=== PATIENT | male | born 1990 | race Caucasian/White ===

== ENCOUNTER 2016-11-19 12:24 | Emergency (ER) | payer OTHER ==
[~2016-11-19] VITALS: Ht 167.6 cm; Wt 88.1 kg
[2016-11-19 12:29] VITALS: TEMP 36.9; Ht 167.6 cm; Wt 88.1 kg
[2016-11-19] MEDS ORDERED: [UNRECOGNIZED DRUG - OTHER] PO (12:37)
--- NOTE | 2016-11-19 13:01 | DIAGNOSTIC IMAGING REPORT ---
RIGHT KNEE 3 VIEWS CLINICAL HISTORY: RIGHT KNEE PAIN, POSSIBLE FLUID Right COMPARISON: None. DISCUSSION: The bones and joint spaces appear intact. There is no evidence of fracture, dislocation or bony disease. There is no evidence for soft tissue swelling. IMPRESSION: Negative study. Electronically signed by: Gage Bull M.D. 11/19/2016 1:00 PM Dictated Date/Time: 11/19/2016 12:59 PM
[2016-11-19] MEDS ORDERED: TRAM-10 PO (13:22)
[2016-11-19 13:29] VITALS: BP 133/75; PULSE 85; O2SAT 98
--- NOTE | 2016-11-20 20:19 | EMERGENCY ROOM VISIT NOTE ---
ED Visit Note First contact with patient: 12:47 Chief Complaint: Right knee pain. History of Present Illness: Mr. Wen is a 26-year-old white male who ambulates into the ED complaining right knee pain and swelling. Historically patient reports he's had previous episodes of swelling of the left knee that has required and arthrocentesis. Reviewing his medical records he has been seen here for right knee pain and swelling. 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 Patient reports she started developing pain for days ago. Initially was mild and has gradually increased in intensity. The rear aspect of the right knee. He describes his pain as a deep achy sensation as well as sharp. He rates his discomfort 7/10. Flexion beyond 30 and palpation increases his discomfort. He has not identified any alleviating factors related to the pain. He reports she's been Hours without relief of his discomfort. Associated with his pain he has noted swelling over the superior aspect of the knee. He denies any recent direct or repetitive trauma, hip pain, thigh pain, lower leg pain, ankle pain, leg weakness/numbness/tingling, fevers, chills, sweats, skin redness, red streaking, fevers, previous significant injuries or surgeries. Review of Systems: As noted above in History of Present Illness. Past Medical History: As noted above. Current Medications: Amoxicillin. Allergies to Medications: Patient denies. Social History: Patient is currently employed; he feels safe in his home environment; he admits to tobacco and alcohol use. Physical Examination: Vital Signs: Date Time Temp Pulse Resp B/P Pulse Ox O2 Delivery O2 Flow Rate FiO2 11/19/16 13:29 85 16 133/75 98 11/19/16 12:29 36.9 91 17 152/89 97 Room Air GENERAL: 26-year-old male in mild distress due to pain, nontoxic-appearing, afebrile and hemodynamically stable. NEUROLOGICAL: Awake, alert and oriented to person, place and time. Answering questions appropriately and following commands. Good hand eye coordination. No focal motor sensory deficits. SKIN: Warm, dry and pink. No soft tissue eruptions or trauma noted. RIGHT LOWER EXTREMITY: No gross bony deformities. No shortening or malrotation. No tenderness over the hip, thigh, lower leg, ankle or foot. Moderate tenderness over the anterior and superior aspects of the knee with mild swelling but no skin erythema or warmth. Negative ballottement test. Negative patellar apprehension test. No laxity of the collateral or cruciate ligaments. No tenderness over the lateral medial joint line. Difficulty performing Paradise's or modified Paradise's test due to pain and swelling. 5/ 5 muscle strength in plantar flexion and dorsiflexion of the ankle and flexion and extension of all toes. No calf tenderness or cords. Distal neurovascular statuses are intact. ED Course: Patient is assessed as noted above. Patient was given ice and 50 mg of Ultram by mouth for pain. Right Knee X-Rays: Were read by myself and the radiologist showing no acute fractures or dislocations. No evidence of bony disease or soft tissue swelling. Patient was placed in a knee immobilizer and on nonweightbearing crutches. Patient was educated about tonight's findings and instructed on his treatment plan; he verbalizes understanding and agreement with this plan. Clinical Impression: Right knee effusion. Decision-Making: Initially my differential diagnosis I considered fracture, dislocation, ligamentous strain, bursitis and other causes. Disposition: Patient discharged home in stable condition accompanied by female friends; prior to departure he was reassessed and subjectively reported he was feeling better and rated his discomfort 6/10. Plan: Comfort measures were discussed with the patient including rest, ice, elevation , splint and crutch use and alternating Ultram and acetaminophen every 3 hours as needed for pain. Patient was encouraged to follow-up with orthopedics if no better in 3-6 days. Patient was encouraged return ED for worsening/uncontrolled pain, uncontrolled swelling, skin redness, red streaking, fevers or any new/concerning symptoms
== END 2016-11-19 13:31 | disposition home or self-care (01) ==
LOC: C.EDB 12:26 → C.EDD 13:31
DX: M25.461 Effusion, right knee (principal); Z72.0 Tobacco use

== ENCOUNTER 2017-02-03 09:45 | Emergency (ER) | payer OTHER ==
[~2017-02-03] VITALS: Ht 167.6 cm; Wt 83.5 kg
[~2017-02-03 09:45] MED LIST: TRAM-10 PO; [UNRECOGNIZED DRUG - OTHER] PO
[2017-02-03 09:46] VITALS: TEMP 36.9; Ht 167.6 cm; Wt 83.5 kg
--- NOTE | 2017-02-03 10:21 | DIAGNOSTIC IMAGING REPORT ---
RIGHT WRIST 5 VIEWS HISTORY: R wrist pain Right COMPARISON: None. FINDINGS: There is no fracture or dislocation. Mild soft tissue swelling. No radiopaque foreign bodies. IMPRESSION: No fractures. Electronically signed by: Donovan Blanchard M.D. 02/03/2017 10:20 AM Dictated Date/Time: 02/03/2017 10:18 AM
[2017-02-03 10:42] VITALS: BP 153/98; PULSE 94; O2SAT 96
--- NOTE | 2017-02-03 17:04 | EMERGENCY ROOM VISIT NOTE ---
ED Visit Note First contact with patient: 09:52 CHIEF COMPLAINT: Right wrist injury History of present illness: This 26-year-old white male patient complains of moderate constant right wrist pain today after a fall. He was carrying firewood and tripped, landing on his right wrist. The pain is worse with any movement of the wrist. No laceration, no numbness or weakness. No other injury. The fall was not associated with dizziness or fainting. There were no palpitations, no chest pain, no difficulty breathing, no headache, no lightheadedness or weakness. Pain is 5/10. His girlfriend accompanies him today. REVIEW OF SYSTEMS: GENERAL: No fever or chills, easy fatigue, loss of appetite, or significant weight change. NEUROLOGICAL: No headache, change in mental status, weakness, numbness, or dizziness. PMH: Supplemental sheet was reviewed and signed. Previous surgeries: None Medical history: Benign Current medications: None Allergies: NKDA SOCIAL HISTORY: Patient lives at home with girlfriend and kids. Positive tobacco use, positive EtOH use. He finishes concrete. Family history: Unremarkable. Parents are living. PHYSICAL EXAM: Vital Signs: Afebrile. Reviewed and filed in patient's chart. General: Well-developed, well-nourished, young white male, in no acute distress. Obvious discomfort. He is sitting on a bed. MENTAL STATUS: Alert and oriented. Skin: Warm and dry with good turgor. No rashes or lesions. No ecchymosis or erythema. The patient is not diaphoretic. No abrasions. Musculoskeletal: There is tenderness over the distal radius and distal ulna with mild swelling on the ulnar border. Range of motion is limited for flexion , extension and ulnar deviation secondary to pain. No obvious deformity. No pain with palpation over the metacarpal heads or digits. There is intact motion of the digits, including opposition and circumduction of the thumb. No significant discomfort at the anatomic snuffbox. Elbow exam is benign. Neurologic: The hand is warm and well perfused and the fingers have normal sensation. Median, radial, and ulnar nerve functions are clearly intact. EMERGENCY DEPARTMENT COURSE: Radiographic images obtained today of the wrist did not show any fracture. A Velcro wrist splint was placed under my direction to insure proper positioning. DIAGNOSIS: Right wrist contusion DISCHARGE INSTRUCTIONS & TREATMENT: The patient was educated regarding today's findings. Conservative care measures were discussed. Velcro wrist splint was applied to the patient. Wear the wrist splint for 4 - 5 days until the pain subsides. Ice and elevate the wrist intermittently to reduce pain and swelling. Ibuprofen, 600mg and Tylenol 1 g every 6 hours if needed for the pain. Gentle motion daily. Wrist sprain handout was provided. Followup with your PCP if not improved over the next 10 days. Current/Historical Medications No Active Prescriptions or Reported Meds Allergies Coded Allergies: No Known Allergies (Unverified , 11/19/16) Vital Signs Date Time Temp Pulse Resp B/P Pulse Ox O2 Delivery O2 Flow Rate FiO2 02/03/17 10:42 94 18 153/98 96 Room Air 02/03/17 09:46 36.9 69 17 154/90 99 Room Air Departure Information Impression Primary Impression: Contusion of right wrist, initial encounter Dispostion Home / Self-Care Condition GOOD Prescriptions No Active Prescriptions or Reported Meds Forms WORK / SCHOOL INSTRUCTIONS, HOME CARE DOCUMENTATION FORM, MOTRIN USE, TYLENOL USE, IMPORTANT VISIT INFORMATION Patient Instructions My [facility] Additional Instructions Ice and elevate frequently to reduce pain and swelling Gentle motion daily Tylenol and Motrin every 6 hours as needed for discomfort Use the wrist splint for support until pain has fully resolved- it may be removed for bathing If symptoms persist longer than 10-14 days, follow-up with your orthopedist for reexamination
== END 2017-02-03 11:15 | disposition home or self-care (01) ==
LOC: C.EDB 09:46
DX: S60.211A Contusion of right wrist, initial encounter (principal); W01.0XXA Fall on same level from slipping, tripping and stumbling without subsequent striking against object, initial encounter; F17.200 Nicotine dependence, unspecified, uncomplicated